=== PATIENT | female | born 1965 | race Caucasian/White ===

== ENCOUNTER 2016-11-09 06:14 | Emergency (ER) | payer SELFPAY ==
[2016-11-09 06:21] VITALS: BP 120/94
[2016-11-09] MEDS ORDERED: PENICILLIN V POTASSIUM 500 MG TABLET PO ONE (06:44)
[2016-11-09] MEDS ORDERED: IBUPROFEN 600 MG TABLET PO ONE (06:44)
[2016-11-09] MEDS ORDERED: BENZONATATE 100 MG CAPSULE PO ONE (06:44)
--- NOTE | 2016-11-09 06:54 | ER Document Report ---
ED Oral Problem - General Chief Complaint: Dental Injury Stated Complaint: TOOTHACHE Time Seen by Provider: 11/09/16 06:32 Mode of Arrival: Ambulatory Information source: Patient Notes: 41-year-old female presents to ED for dental pain to the left upper tooth #5 and 6. Most of the teeth are gone from her upper jaw. These teeth are very decayed broken off 1 of them right at the gum line the other one pretty close to that. Patient states she was on pain management but had to quit due to no insurance. She states she got her last pain medicine last week. When I reviewed her medical record, showed she she received 10 fentanyl patches last week. She was not using the fentanyl patches because they were not helping. She states she does not live in the morning as they are ordered. TRAVEL OUTSIDE OF THE [place] IN LAST 30 DAYS: No - HPI Patient complains to provider of: Jaw pain, Toothache Onset: Other - Pain to the tooth but it became much worse on and then even worse today Onset: Gradual Quality of pain: Sharp, Throbbing Severity: Severe Pain Level: 5 Associated symptoms: Toothache Worsened by: Cold Relieved by: Nothing Similar symptoms previously: Yes Recently seen / treated by doctor/dentist: No - Related Data Allergies/Adverse Reactions: No Known Allergies Allergy (Verified 12/21/13 14:41) Past Medical History - General Information source: Patient - Social History Smoking Status: Current Every Day Smoker Cigarette use (# per day): Yes - Half a pack a day Chew tobacco use (# tins/day): No Smoking Education Provided: Yes - Less than 2 minutes Frequency of alcohol use: Occasional Drug Abuse: None 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 denies: DM, Thyroid Disfunction Patient has suicidal ideation: No Patient has homicidal ideation: No - Past Medical History Cardiac Medical History: Reports: None Pulmonary Medical History: Reports: None EENT Medical History: Reports: None Neurological Medical History: Reports: None Endocrine Medical History: Reports: None Renal/ Medical History: Reports: None Malignancy Medical History: Reports: None GI Medical History: Reports: None Musculoskeltal Medical History: Reports Hx Arthritis, Reports Hx Musculoskeletal Deformity, Reports Hx Musculoskeletal Trauma Skin Medical History: Reports None Psychiatric Medical History: Reports: None Traumatic Medical History: Reports: None Infectious Medical History: Reports: None Past Surgical History: Reports: Hx Oral Surgery - Dental surgery, Hx Tubal Ligation - Immunizations Hx Diphtheria, Pertussis, Tetanus Vaccination: Yes - 2005 Review of Systems - Review of Systems Constitutional: No symptoms reported EENT: Mouth pain, Dental problem Cardiovascular: No symptoms reported Respiratory: No symptoms reported Gastrointestinal: No symptoms reported Genitourinary: No symptoms reported Female Genitourinary: No symptoms reported Musculoskeletal: No symptoms reported Skin: No symptoms reported Hematologic/Lymphatic: No symptoms reported Neurological/Psychological: No symptoms reported -: Yes All other systems reviewed and negative Physical Exam - Vital signs Vitals: Temp Pulse Resp BP Pulse Ox 98.5 F 85 16 120/94 H 97 11/09/16 06:20 11/09/16 06:20 11/09/16 06:20 11/09/16 06:20 11/09/16 06:20 Interpretation: Normal - General General appearance: Appears well, Alert - HEENT Head: Normocephalic, Atraumatic Eyes: Normal Pupils: PERRL Ears: Normal External canal: Normal Tympanic membrane: Normal Sinus: Normal Nasal: Normal Mouth/Lips: Caries Mucous membranes: Normal Teeth diagram: 1 - Dental cavities, tooth broken off almost to the gumline. Irritation to the gums. Patient only has about 3 teeth in the top jaw. The rest her false teeth. Pharynx: Normal Neck: Normal - Respiratory Respiratory status: No respiratory distress Chest status: Nontender Breath sounds: Normal Chest palpation: Normal - Cardiovascular Rhythm: Regular Heart sounds: Normal auscultation Murmur: No - Abdominal Inspection: Normal Distension: No distension Bowel sounds: Normal Tenderness: Nontender Organomegaly: No organomegaly - Back Back: Normal, Nontender - Extremities General upper extremity: Normal inspection, Nontender, Normal color, Normal ROM , Normal temperature General lower extremity: Normal inspection, Nontender, Normal color, Normal ROM , Normal temperature, Normal weight bearing. No: Hernandez's sign - Neurological Neuro grossly intact: Yes Cognition: Normal Orientation: AAOx4 Deshawn Coma Scale Eye Opening: Spontaneous Deshawn Coma Scale Verbal: Oriented Rosalia Coma Scale Motor: Obeys Commands Rosalia Coma Scale Total: 15 Speech: Normal Motor strength normal: LUE, RUE, LLE, RLE Sensory: Normal - Psychological Associated symptoms: Normal affect, Normal mood - Skin Skin Temperature: Warm Skin Moisture: Dry Skin Color: Normal Course - Re-evaluation Re-evalutation: 11/09/16 07:29 Patient was treated with Penicillin VK ibuprofen and a Kaushal used on the tooth she said she did not get relief with the Tessalon. Patient instructed to use her fentanyl patches as ordered not to put him on intake might back off. Patient to follow-up with the dentist. - Vital Signs Vital signs: Temp Pulse Resp BP Pulse Ox 98.5 F 85 16 120/94 H 97 11/09/16 06:20 11/09/16 06:20 11/09/16 06:20 11/09/16 06:20 11/09/16 06:20 Discharge - Discharge Clinical Impression: Pain due to dental caries Condition: Stable Disposition: HOME, SELF-CARE Additional Instructions: TOOTHACHE: Your pain is due to dental decay. The tooth must be repaired in order for you to feel better. You will, therefore, be referred to a dentist. We do not have dentists on the staff at [facility]. Severe swelling or drainage around a tooth usually means a dental abscess. This also requires evaluation and treatment by the dentist, but antibiotics may be prescribed while awaiting dental treatment. You should be rechecked immediately if you develop major swelling of the face, increasing pain, a lump in the jaw or gums, headache, difficulty swallowing, or fever. PENICILLIN V K: You have been given a prescription for Penicillin VK. Your physician has determined that this is the best antibiotic for your condition. Pen VK can be taken with meals, however more of the antibiotic gets into the bloodstream if it's taken on an empty stomach. Penicillin usually has no side effects. However, allergy to penicillins is common. If you have had an allergic reaction to any drug of the penicillin family, you should never take any other penicillin. Notify your doctor at once if you develop hives, itching, swelling, faintness, or shortness of breath. Ibuprofen Ibuprofen is an excellent, safe drug for pain control. In addition, it has potent antiinflammatory effects which are beneficial, especially in the treatment of injuries, arthritis, or tendonitis. It's best to take ibuprofen with food. Persons with ulcer disease or allergy to aspirin should notify their physician of this before taking ibuprofen. Take the medication exactly as prescribed. Don't take additional doses unless instructed to do so by your doctor. If you develop wheezing, shortness of breath, hives, faintness, stomach pain, vomiting, or dark black stools, return for re-evaluation at once. Use your fentanyl patches that you have as prescribed. Put the patch on and leave it on for 3 days and then change the patch taken the first 1 also put in a new one on. They do not work as soon as you put them on you have to leave the morning as ordered. You need to follow-up with a dentist as soon as possible to remove these teeth. FOLLOW-UP CARE: You have been referred for follow-up care to the dentists listed below. Call the dentists office for an appointment as you were instructed or within the next two days. If you experience worsening or a significant change in your symptoms, notify the physician immediately or return to the Emergency Department at any time for re-evaluation. [facility] [address] [place] [address] [facility] [place] [address] [facility] [address] [facility] ([facility]) [facility] [address] [email or web address] [facility] [address] [place] [address] Thursday- 8:00am to 5:00 pm Will see patients from other [facility]. Charges based on income and family size and accepts Medicare, Medicaid, and Insurances Will pull molars [facility] [address] Hours of Operation 8:00 am - 4:30 pm weekdays The following dental offices accept Medicaid: [facility] [address] [place]. Delgado [facility], [place], and [facility] Dr. Lewis ([place]) Dr. Llamas ([place]) [facility] Drs. Ruiz ([place]) Dr. Arenas ([place]) [facility] Dr. Michelle ([place]) Drs. Koehler and ([place]) Medicaid Care Line Prescriptions: Penicillin V Potassium [Penicillin Vk 500 mg Tablet] 500 mg PO BID #20 tablet Forms: Elevated Blood Pressure, Smoking Cessation Education Referrals: [facility] [Provider Group] - Follow up as needed
== END 2016-11-09 07:18 | disposition home or self-care (01) ==
LOC: ER 06:14
DX: K02.9 Dental caries, unspecified (principal); K08.89 Other specified disorders of teeth and supporting structures; F17.210 Nicotine dependence, cigarettes, uncomplicated; Z71.6 Tobacco abuse counseling; Z98.890 Other specified postprocedural states
CPT/HCPCS: 99282

== ENCOUNTER 2018-03-03 12:57 | Inpatient (IN) | payer SELFPAY ==
[2018-03-03] MEDS ORDERED: KETOROLAC TROMETHAMINE 60 MG/2 ML SDV IM ONE (13:48)
--- NOTE | 2018-03-03 13:49 | ER Document Report ---
ED Medical Screen (RME) - General Chief Complaint: Headache >24 hrs old Stated Complaint: HEADACHE Time Seen by Provider: 03/03/18 13:43 Notes: 52 years old female who was acting very bizarre, complain chest pain at the triage, complaint of left lower quadrant abdominal pain to me. Would not stay still. Having pain all over the body. Denies any fever chills earache sore throat neck pain shortness of breath. Denies any nausea vomiting. Been having dysuria and frequency. TRAVEL OUTSIDE OF THE [place] IN LAST 30 DAYS: No - Related Data Allergies/Adverse Reactions: No Known Allergies Allergy (Verified 03/03/18 12:58) Past Medical History - Social History Family history: Reviewed & Not Pertinent - Past Medical History Cardiac Medical History: Denies: Hx Coronary Artery Disease, Hx Heart Attack, Hx Hypertension Pulmonary Medical History: Denies: Hx Asthma, Hx Bronchitis, Hx COPD, Hx Pneumonia Neurological Medical History: Denies: Hx Cerebrovascular Accident, Hx Seizures Renal/ Medical History: Denies: Hx Peritoneal Dialysis Musculoskeltal Medical History: Reports Hx Arthritis, Reports Hx Musculoskeletal Deformity, Reports Hx Musculoskeletal Trauma Past Surgical History: Reports: Hx Oral Surgery - Dental surgery, Hx Tubal Ligation. Denies: Hx Hysterectomy, Hx Pacemaker - Immunizations Hx Diphtheria, Pertussis, Tetanus Vaccination: Yes - 2005 Physical Exam - Vital signs Vitals: Temp Pulse BP Pulse Ox 99.3 F 126 H 120/71 100 03/03/18 13:20 03/03/18 13:20 03/03/18 13:20 03/03/18 13:20 Course - Vital Signs Vital signs: Temp Pulse Resp BP Pulse Ox 99.3 F 126 H 22 H 120/71 100 03/03/18 13:20 03/03/18 13:20 03/03/18 13:25 03/03/18 13:20 03/03/18 13:20
[2018-03-03 14:16] LABS: HEMATOCRIT 37.8 % (36.0-47.0); HEMOGLOBIN 13.3 g/dL (12.0-15.5); MEAN CORPUSCULAR HEMOGLOBIN 29.7 pg (27.0-33.4); MEAN CORPUSCULAR HGB CONC 35.1 g/dL (32.0-36.0); MEAN CORPUSCULAR VOLUME 85 fl (80-97); PLATELET COUNT 311 10^3/uL (150-450); RED BLOOD COUNT 4.46 10^6/uL (3.72-5.28); RED CELL DISTRIBUTION WIDTH 12.2 % (11.5-14.0); WHITE BLOOD COUNT 25.4 10^3/uL (4.0-10.5)
[2018-03-03 14:26] LABS: APPEARANCE,URINE CLOUDY; BILIRUBIN,URINE NEGATIVE (NEGATIVE); COLOR,URINE AMBER; GLUCOSE, URINE NEGATIVE (NEGATIVE); KETONES,URINE NEGATIVE (NEGATIVE); LEUKOCYTE ESTERASE,URINE LARGE (NEGATIVE); NITRITE,URINE POSITIVE (NEGATIVE); PROTEIN,URINE >=500 mg/dL (NEGATIVE); URINE SPECIFIC GRAVITY 1.017
[2018-03-03 14:30] LABS: ALANINE AMINOTRANSFERASE 16 U/L (9-52); ALBUMIN 3.5 g/dL (3.5-5.0); ALKALINE PHOSPHATASE 132 U/L (38-126); ANION GAP 17 (5-19); ASPARTATE AMINO TRANSFERASE 18 U/L (14-36); BILIRUBIN,DIRECT 0.4 mg/dL (0.0-0.4); BILIRUBIN,TOTAL 1.3 mg/dL (0.2-1.3); BLOOD UREA NITROGEN 12 mg/dL (7-20); CALCIUM 8.6 mg/dL (8.4-10.2); CARBON DIOXIDE 27 mmol/L (22-30); CHLORIDE 93 mmol/L (98-107); GLUCOSE 107 mg/dL (75-110); SODIUM 137.3 mmol/L (137-145); TOTAL PROTEIN 6.8 g/dL (6.3-8.2)
[2018-03-03 14:32] LABS: POTASSIUM 2.8 mmol/L (3.6-5.0)
[2018-03-03 14:40] LABS: ABSOLUTE LYMPHOCYTES# (MANUAL) 1.5 10^3/uL (0.5-4.7); ABSOLUTE MONOCYTES # (MANUAL) 1.5 10^3/uL (0.1-1.4); ABSOLUTE NEUTROPHILS# (MANUAL) 22.4 10^3/uL (1.7-8.2); BASOPHILS % (MANUAL) 0 % (0-2); EOSINOPHILS % (MANUAL) 0 % (0-6); LYMPHOCYTES % (MANUAL) 3 % (13-45); MONOCYTES % (MANUAL) 6 % (3-13); SEGMENTED NEUTROPHILS % (MAN) 88 % (42-78); TOTAL CELLS COUNTED 100; TOXIC GRANULATION SLIGHT; URINE AMPHETAMINES SCREEN NEGATIVE; URINE BARBITURATES SCREEN NEGATIVE; URINE BENZODIAZEPINES SCREEN UNCONFIRMED POSITIVE; URINE COCAINE SCREEN NEGATIVE; URINE MARIJUANA (THC) SCREEN NEGATIVE; URINE METHADONE SCREEN NEGATIVE; URINE PHENCYCLIDINE SCREEN NEGATIVE
[2018-03-03] MEDS ORDERED: POTASSI CL 20 MEQ/50 ML RIDER 20 MEQ/50 ML RTUPB IV ONE (14:40)
[2018-03-03 14:41] LABS: HYPOCHROMASIA SLIGHT; PLATELET COMMENT ADEQUATE
[2018-03-03] MEDS ORDERED: CEFTRIAXONE 1 GM/D5W RTU 1 GM/50 ML RTUPB IV ONE (15:06)
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
[2018-03-03] MEDS ORDERED: DIPHENHYDRAMINE HCL 50 MG/ML VIAL IV ONE (15:14)
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
--- NOTE | 2018-03-03 15:49 | RADIOLOGY REPORT (SQ) ---
EXAM DESCRIPTION: CHEST 2 VIEWS COMPLETED DATE/TIME: 03/03/2018 3:31 pm REASON FOR STUDY: chest pain COMPARISON: None. EXAM PARAMETERS: NUMBER OF VIEWS: two views TECHNIQUE: Digital Frontal and Lateral radiographic views of the chest acquired. RADIATION DOSE: NA LIMITATIONS: none FINDINGS: LUNGS AND PLEURA: No opacities, masses or pneumothorax. No pleural effusion. MEDIASTINUM AND HILAR STRUCTURES: No masses or contour abnormalities. HEART AND VASCULAR STRUCTURES: Heart normal size. No evidence for failure. BONES: No acute findings. HARDWARE: None in the chest. OTHER: No other significant finding. IMPRESSION: NO ACUTE RADIOGRAPHIC FINDING IN THE CHEST. TECHNICAL DOCUMENTATION: JOB ID: [id number] [email or web address]- All Rights Reserved Reading location - IP/workstation name: [email or web address]
[2018-03-03] MEDS: RINGERS SOLUTION,LACTATED 1,000 ML IV PRN ×2 (15:53→16:30)
[2018-03-03 16:04] LABS: VENOUS BLOOD BASE EXCESS 2.3 mmol/L; VENOUS BLOOD HCO3 27.2 mmol/L (20-32); VENOUS BLOOD PCO2 43.2 mmHg (35-63); VENOUS BLOOD PH 7.42 (7.30-7.42)
[2018-03-03 16:15] LABS: INTERNATIONAL RATION (INR) 1.02; PROTHROMBIN TIME 13.9 SEC (11.4-15.4)
[2018-03-03 16:18] LABS: D-DIMER 2.68 ug/mL (0.00-0.50)
[2018-03-03] MEDS ORDERED: IPRATROPIUM/ALBUTEROL 0.5-2.5 MG/3 ML AMPUL NEB PRN (17:08)
[2018-03-03] MEDS ORDERED: POTASSIUM CHLORIDE 20 MEQ/15 ML UDCUP PO ONE (17:17)
--- NOTE | 2018-03-03 17:39 | RADIOLOGY REPORT (SQ) ---
EXAM DESCRIPTION: CTA CHEST COMPLETED DATE/TIME: 03/03/2018 5:30 pm REASON FOR STUDY: sob elevated dimer COMPARISON: Chest radiograph TECHNIQUE: CT scan of the chest performed using helical scanning technique with dynamic intravenous contrast injection. Images reviewed with lung, soft tissue and bone windows. Reconstructed coronal and sagittal MPR images reviewed. Additional 3 dimensional post-processing performed to develop Maximal Intensity Projection images (MS P). All images stored on PACS. All CT scanners at this facility use dose modulation, iterative reconstruction, and/or weight based d osing when appropriate to reduce radiation dose to as low as reasonably achievable (ALARA). [facility]: Dose Right [facility]: CareDose [facility]: Dose Right [facility]: Teradose 4D [facility]: [employer] CONTRAST TYPE AND DOSE: contrast/concentration: Isovue 350.00 mg/ml; Total Contrast Delivered: 49.0 ml; Total Saline Delivered: 94.0 ml Contrast bolus optimized for the pulmonary arteries. Not diagnostic for the aorta. RENAL FUNCTION: Creatinine 0.96 RADIATION DOSE: CT Rad equipment meets quality standard of care and radiation dose reduction techniq ues were employed. CTDIvol: 4.4 - 13.2 mGy. DLP: 173 mGy-cm. . LIMITATIONS: None. FINDINGS: LUNGS AND PLEURA: No masses, infiltrates, or pneumothorax. No pleural effusions or pleura l calcifications. AORTA AND GREAT VESSELS: No aneurysm. Contrast bolus not optimized for the aorta. HEART: No pericardial effusion. No significant coronary artery calcifications. PULMONARY ARTERIES: No emboli visualized in the main pulmonary arteries or the segmental branches. HILAR AND MEDIASTINAL STRUCTURES: No identified masses or abnormal nodes. HARDWARE: None in the chest. UPPER ABDOMEN: No significant findings. Limited exam. THYROID AND OTHER SOFT TISSUES: No masses. No adenopathy. BONES: No acute or significant finding. 3D MIPS: Confirm above findings. OTHER: No other significant finding. IMPRESSION: NORMAL CTA OF THE CHEST. NO PULMONARY EMBOLI. COMMENT: Quality ID # [id number]: Final reports with documentation of one or more dose reduction techniques (e.g., Automated exposure control, adjustment of the mA and/or kV according to patient size, use of iterative reconstruction technique) TECHNICAL DOCUMENTATION: JOB ID: [id number] [email or web address]- All Rights Reserved Reading location - IP/workstation name: [email or web address]
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
[2018-03-03] MEDS ORDERED: ENOXAPARIN SODIUM INJ 40 MG/0.4 ML DISP.SYRIN SUBCUT ONE (19:00)
[2018-03-03] MEDS: MAGNESIUM SULFATE/D5W 1 GM/100 ML RTUPB IV SCH ×2 (19:15→21:16)
--- NOTE | 2018-03-03 19:20 | EKG REPORT ---
SEVERITY:- OTHERWISE NORMAL ECG - SINUS TACHYCARDIA : Confirmed by: Nancy Liu MD 03-Mar-2018 19:19:26
[2018-03-03] MEDS: DEXTROSE 5%-NORMAL SALINE 1,000 ML IV PRN (19:25)
[2018-03-03 20:35] LABS: ANION GAP 10 (5-19); BLOOD UREA NITROGEN 13 mg/dL (7-20); CALCIUM 7.9 mg/dL (8.4-10.2); CARBON DIOXIDE 28 mmol/L (22-30); CHLORIDE 98 mmol/L (98-107); GLUCOSE 114 mg/dL (75-110); POTASSIUM 3.7 mmol/L (3.6-5.0); SODIUM 136.4 mmol/L (137-145)
[2018-03-03] MEDS ORDERED: GUAIFENESIN 600 MG TABLET.SA PO SCH (22:00)
[2018-03-04] MEDS ORDERED: ACETAMINOPHEN 325 MG TABLET ONE (00:34)
[2018-03-04] MEDS: ACETAMINOPHEN 325 MG TABLET PO PRN ×3 (00:52→14:31)
[2018-03-04 05:43] LABS: URINE POTASSIUM 46.2 mmol/L (22-164)
[2018-03-04] MEDS ORDERED: LANSOPRAZOLE 15 MG TAB.RAP.DR PO SCH (06:00)
[2018-03-04 06:03] LABS: HEMOGLOBIN 11.4 g/dL (12.0-15.5); MEAN CORPUSCULAR HEMOGLOBIN 29.5 pg (27.0-33.4); MEAN CORPUSCULAR HGB CONC 34.6 g/dL (32.0-36.0); MEAN CORPUSCULAR VOLUME 85 fl (80-97); PLATELET COUNT 228 10^3/uL (150-450); RED BLOOD COUNT 3.86 10^6/uL (3.72-5.28); RED CELL DISTRIBUTION WIDTH 12.7 % (11.5-14.0)
[2018-03-04 06:18] LABS: WHITE BLOOD COUNT 22.9 10^3/uL (4.0-10.5)
[2018-03-04 06:26] LABS: ALANINE AMINOTRANSFERASE 15 U/L (9-52); ALBUMIN 2.4 g/dL (3.5-5.0); ALKALINE PHOSPHATASE 127 U/L (38-126); ANION GAP 11 (5-19); ASPARTATE AMINO TRANSFERASE 17 U/L (14-36); BILIRUBIN,DIRECT 0.3 mg/dL (0.0-0.4); BILIRUBIN,TOTAL 0.7 mg/dL (0.2-1.3); BLOOD UREA NITROGEN 11 mg/dL (7-20); CALCIUM 7.8 mg/dL (8.4-10.2); CARBON DIOXIDE 25 mmol/L (22-30); CHLORIDE 104 mmol/L (98-107); GLUCOSE 108 mg/dL (75-110); POTASSIUM 3.2 mmol/L (3.6-5.0); SODIUM 140.2 mmol/L (137-145)
[2018-03-04 06:34] LABS: ABSOLUTE LYMPHOCYTES# (MANUAL) 0.9 10^3/uL (0.5-4.7); ABSOLUTE MONOCYTES # (MANUAL) 0.9 10^3/uL (0.1-1.4); ABSOLUTE NEUTROPHILS# (MANUAL) 21.1 10^3/uL (1.7-8.2); BAND NEUTROPHILS % (MANUAL) 7 % (3-5); BASOPHILS % (MANUAL) 0 % (0-2); EOSINOPHILS % (MANUAL) 0 % (0-6); LYMPHOCYTES % (MANUAL) 4 % (13-45); MONOCYTES % (MANUAL) 4 % (3-13); SEGMENTED NEUTROPHILS % (MAN) 85 % (42-78); TOTAL CELLS COUNTED 100
[2018-03-04 06:35] LABS: TOXIC GRANULATION SLIGHT; TOXIC VACUOLATION PRESENT
[2018-03-04 06:37] LABS: RBC MORPHOLOGY COMMENT NORMO-CYTIC/CHROMIC
[2018-03-04 06:38] LABS: PLATELET COMMENT ADEQUATE
[2018-03-04] MEDS: GUAIFENESIN 600 MG TABLET.SA PO SCH ×2 (09:10→21:51)
[2018-03-04] MEDS: ENOXAPARIN SODIUM INJ 40 MG/0.4 ML DISP.SYRIN SUBCUT SCH (09:11)
[2018-03-04] MEDS ORDERED: POTASSIUM CHLORIDE 20 MEQ/15 ML UDCUP PO SCH (10:00)
[2018-03-04] MEDS ORDERED: LEVOFLOXACIN 750 MG/D5W RTU 750 MG/150 ML RTUPB IV SCH (10:00)
[2018-03-04] MEDS: BUTALB/ACETAMINOPHEN/CAFFEINE 1 TAB EACH PO PRN (10:25)
[2018-03-04] MEDS: DEXTROSE 5%-NORMAL SALINE 1,000 ML IV PRN (10:58)
[2018-03-04] MEDS: PIPERACILLIN SODIUM/TAZOBACTAM 4.5 GM in NORMAL SALINE 100 ML IV SCH ×2 (10:59→17:44)
--- NOTE | 2018-03-04 13:28 | RADIOLOGY REPORT (SQ) ---
EXAM DESCRIPTION: U/S RETROPERITON (RENAL/AORTA) COMPLETED DATE/TIME: 03/04/2018 12:11 pm REASON FOR STUDY: rule out pyelo COMPARISON: None. TECHNIQUE: Dynamic and static grayscale images acquired of the kidneys and bladder and recorded on P ACS. Additional selected color Doppler and spectral images recorded. LIMITATIONS: None. FINDINGS: RIGHT KIDNEY: Normal size, 12 cm. Normal echogenicity. No solid or suspicious masses. No h ydronephrosis. No calcifications. LEFT KIDNEY: Normal size, 12.9 cm. Normal echogenicity. No solid or suspicious masses. No hydronephr osis. No calcifications. BLADDER: Not seen. OTHER FINDINGS: No other significant finding. IMPRESSION: Normal renal ultrasound. TECHNICAL DOCUMENTATION: JOB ID: [id number] [employer]- All Rights Reserved Reading location - IP/workstation name: [email or web address]
[2018-03-04] MEDS: NORMAL SALINE 1000 ML 1,000 ML IV PRN (14:35)
[2018-03-04] MEDS ORDERED: MORPHINE SULFATE 10 MG/ML INJ IV PRN (15:45)
[2018-03-04] MEDS ORDERED: CEFAZOLIN 2 GM/D5W RTU 2 GM/50 ML RTUPB IV PRN (16:00)
[2018-03-04] MEDS ORDERED: VANCOMYCIN HCL 0 MG in DEXTROSE 5%-WATER 250 ML IV NR (16:00)
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
[2018-03-04] MEDS ORDERED: IBUPROFEN 800 MG TABLET PO ONE (16:30)
[2018-03-04] MEDS: LANSOPRAZOLE 15 MG TAB.RAP.DR PO SCH (16:34)
[2018-03-04] MEDS: FOLIC ACID 1 MG TABLET PO SCH (17:44)
[2018-03-04] MEDS: THIAMINE HCL 100 MG TABLET PO SCH (17:44)
[2018-03-04] MEDS: LORAZEPAM INJ 2 MG/1 ML VIAL IV PRN ×2 (17:44→21:50)
[2018-03-04] MEDS: VANCOMYCIN HCL 750 MG in DEXTROSE 5%-WATER 250 ML IV SCH (21:51)
[2018-03-05] MEDS: PIPERACILLIN SODIUM/TAZOBACTAM 4.5 GM in NORMAL SALINE 100 ML IV SCH ×5 (00:12→23:36)
[2018-03-05] MEDS: ACETAMINOPHEN 325 MG TABLET PO PRN ×2 (04:38→15:15)
[2018-03-05] MEDS: LORAZEPAM INJ 2 MG/1 ML VIAL IV PRN ×4 (04:39→21:47)
[2018-03-05] MEDS: NORMAL SALINE 1000 ML 1,000 ML IV PRN ×2 (04:39→15:10)
[2018-03-05 04:57] LABS: HEMATOCRIT 29.6 % (36.0-47.0); HEMOGLOBIN 10.2 g/dL (12.0-15.5); MEAN CORPUSCULAR HEMOGLOBIN 29.4 pg (27.0-33.4); MEAN CORPUSCULAR HGB CONC 34.4 g/dL (32.0-36.0); MEAN CORPUSCULAR VOLUME 86 fl (80-97); PLATELET COUNT 234 10^3/uL (150-450); RED BLOOD COUNT 3.46 10^6/uL (3.72-5.28); WHITE BLOOD COUNT 13.9 10^3/uL (4.0-10.5)
[2018-03-05] MEDS: LANSOPRAZOLE 15 MG TAB.RAP.DR PO SCH ×2 (05:05→17:50)
[2018-03-05 05:20] LABS: ALANINE AMINOTRANSFERASE 13 U/L (9-52); ALBUMIN 2.2 g/dL (3.5-5.0); ALKALINE PHOSPHATASE 125 U/L (38-126); ANION GAP 13 (5-19); ASPARTATE AMINO TRANSFERASE 16 U/L (14-36); BILIRUBIN,DIRECT 0.2 mg/dL (0.0-0.4); BILIRUBIN,TOTAL 0.5 mg/dL (0.2-1.3); BLOOD UREA NITROGEN 11 mg/dL (7-20); CALCIUM 7.8 mg/dL (8.4-10.2); CARBON DIOXIDE 23 mmol/L (22-30); CHLORIDE 105 mmol/L (98-107); GLUCOSE 94 mg/dL (75-110); POTASSIUM 3.2 mmol/L (3.6-5.0); SODIUM 140.5 mmol/L (137-145); TOTAL PROTEIN 4.7 g/dL (6.3-8.2)
[2018-03-05 05:22] LABS: ABSOLUTE MONOCYTES # (MANUAL) 0.6 10^3/uL (0.1-1.4); ABSOLUTE NEUTROPHILS# (MANUAL) 12.2 10^3/uL (1.7-8.2); BASOPHILS % (MANUAL) 0 % (0-2); EOSINOPHILS % (MANUAL) 1 % (0-6); LYMPHOCYTES % (MANUAL) 6 % (13-45); MONOCYTES % (MANUAL) 4 % (3-13); PLATELET COMMENT ADEQUATE; RBC MORPHOLOGY COMMENT NORMO-CYTIC/CHROMIC; SEGMENTED NEUTROPHILS % (MAN) 88 % (42-78); TOTAL CELLS COUNTED 100
[2018-03-05] MEDS: POTASSIUM CHLORIDE 20 MEQ/15 ML UDCUP PO SCH ×2 (09:25→17:50)
[2018-03-05] MEDS: ENOXAPARIN SODIUM INJ 40 MG/0.4 ML DISP.SYRIN SUBCUT SCH (09:26)
[2018-03-05] MEDS: FOLIC ACID 1 MG TABLET PO SCH (09:26)
[2018-03-05] MEDS: GUAIFENESIN 600 MG TABLET.SA PO SCH ×2 (09:26→21:47)
[2018-03-05] MEDS: THIAMINE HCL 100 MG TABLET PO SCH (09:26)
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
--- NOTE | 2018-03-05 15:22 | RADIOLOGY REPORT (SQ) ---
EXAM DESCRIPTION: CT THORACIC SPINE WITHOUT COMPLETED DATE/TIME: 03/05/2018 1:34 pm REASON FOR STUDY: Persistent fever and paraspinal tenderness COMPARISON: None. TECHNIQUE: Axial images acquired through the thoracic spine without intravenous contrast. Images re viewed with lung, soft tissue and bone windows. Reconstructed coronal and sagittal MPR images review ed. Images stored on PACS. All CT scanners at this facility use dose modulation, iterative reconstruction, and/or weight based d osing when appropriate to reduce radiation dose to as low as reasonably achievable (ALARA). [facility]: Dose Right [facility]: CareDose [facility]: Dose Right [facility]: Teradose 4D [facility]: [employer] RADIATION DOSE: CT Rad equipment meets quality standard of care and radiation dose reduction techniq ues were employed. CTDIvol: 4.7 mGy. DLP: 171 mGy-cm. mGy. LIMITATIONS: None. FINDINGS: VISUALIZED LUNGS: No acute opacities. No pneumothorax. SOFT TISSUES: No soft tissue swelling. No masses. VERTEBRAL BODIES: No fractures. No dislocation. No acute findings. DISCS: No significant disc space narrowing. ALIGNMENT: Normal. TRANSVERSE PROCESSES, POSTERIOR ELEMENTS: No fractures. No dislocation. No acute findings. HARDWARE: None in the spine. VISUALIZED RIBS: No fractures. OTHER: No other significant finding. IMPRESSION: No acute findings. TECHNICAL DOCUMENTATION: JOB ID: [id number] Quality ID # [id number]: Final reports with documentation of one or more dose reduction techniques (e.g., Au tomated exposure control, adjustment of the mA and/or kV according to patient size, use of iterative reconstruction technique) 2010 [employer] All Rights Reserved Reading location - IP/workstation name: [email or web address]
--- NOTE | 2018-03-05 15:32 | RADIOLOGY REPORT (SQ) ---
EXAM DESCRIPTION: CT LUMBAR SPINE WITHOUT COMPLETED DATE/TIME: 03/05/2018 1:34 pm REASON FOR STUDY: Persistent fever and paraspinal tenderness COMPARISON: None. TECHNIQUE: Axial images acquired through the lumbar spine without intravenous contrast. Images revi ewed with lung, soft tissue and bone windows. Reconstructed coronal and sagittal MPR images reviewed . All images stored on PACS. All CT scanners at this facility use dose modulation, iterative reconstruction, and/or weight based d osing when appropriate to reduce radiation dose to as low as reasonably achievable (ALARA). [facility]: Dose Right [facility]: CareDose [facility]: Dose Right [facility]: Teradose 4D [facility]: [employer] RADIATION DOSE: CT Rad equipment meets quality standard of care and radiation dose reduction techniq ues were employed. CTDIvol: 4.6 mGy. DLP: 125 mGy-cm. mGy. LIMITATIONS: None. FINDINGS: Alignment is anatomic. Mild facet arthropathy lower lumbar spine. Disc heights are maint ained. Anterior spur formation L3-4. No spinal stenosis. SI joints are normal. No paraspinal mass . IMPRESSION: No acute findings. TECHNICAL DOCUMENTATION: JOB ID: [id number] Quality ID # [id number]: Final reports with documentation of one or more dose reduction techniques (e.g., Au tomated exposure control, adjustment of the mA and/or kV according to patient size, use of iterative reconstruction technique) 2010 [employer]- All Rights Reserved Reading location - IP/workstation name: [email or web address]
[2018-03-05] MEDS ORDERED: IBUPROFEN 600 MG TABLET PO ONE (17:30)
[2018-03-05] MEDS: VANCOMYCIN HCL 750 MG in DEXTROSE 5%-WATER 250 ML IV SCH (21:47)
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
[2018-03-06] MEDS: BUTALB/ACETAMINOPHEN/CAFFEINE 1 TAB EACH PO PRN (02:27)
[2018-03-06] MEDS: LORAZEPAM INJ 2 MG/1 ML VIAL IV PRN (03:12)
[2018-03-06] MEDS: ACETAMINOPHEN 325 MG TABLET PO PRN (03:13)
[2018-03-06] MEDS: NORMAL SALINE 1000 ML 1,000 ML IV PRN (05:46)
[2018-03-06] MEDS: PIPERACILLIN SODIUM/TAZOBACTAM 4.5 GM in NORMAL SALINE 100 ML IV SCH (05:46)
[2018-03-06] MEDS: LANSOPRAZOLE 15 MG TAB.RAP.DR PO SCH ×2 (05:47→17:15)
[2018-03-06] MEDS: CEFAZOLIN 1 GM/D5W RTU 1 GM/50 ML RTUPB IV SCH ×3 (09:29→21:11)
[2018-03-06] MEDS: FOLIC ACID 1 MG TABLET PO SCH (09:29)
[2018-03-06] MEDS: THIAMINE HCL 100 MG TABLET PO SCH (09:30)
[2018-03-06] MEDS: GUAIFENESIN 600 MG TABLET.SA PO SCH ×2 (09:30→21:10)
[2018-03-06] MEDS: ENOXAPARIN SODIUM INJ 40 MG/0.4 ML DISP.SYRIN SUBCUT SCH (09:30)
[2018-03-06] MEDS: POTASSIUM CHLORIDE 20 MEQ/15 ML UDCUP PO SCH ×2 (12:29→17:13)
[2018-03-06] MEDS: POTASSI CL 20 MEQ/D5-1/2NS 1L 1,000 ML IV PRN (12:30)
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
[2018-03-06] MEDS: KETOROLAC TROMETHAMINE INJ/PF 30 MG/1 ML SDV IV SCH ×2 (17:13→23:29)
[2018-03-07] MEDS: POTASSI CL 20 MEQ/D5-1/2NS 1L 1,000 ML IV PRN ×2 (00:53→16:24)
[2018-03-07] MEDS: CEFAZOLIN 1 GM/D5W RTU 1 GM/50 ML RTUPB IV SCH ×4 (04:49→21:18)
[2018-03-07] MEDS: LANSOPRAZOLE 15 MG TAB.RAP.DR PO SCH ×2 (05:00→16:25)
[2018-03-07] MEDS: KETOROLAC TROMETHAMINE INJ/PF 30 MG/1 ML SDV IV SCH ×4 (05:16→23:16)
[2018-03-07] MEDS: POTASSIUM CHLORIDE 20 MEQ/15 ML UDCUP PO SCH ×3 (08:57→16:24)
[2018-03-07 09:22] LABS: ABSOLUTE BASOPHILS # (AUTO) 0.1 10^3/uL (0.0-0.2); ABSOLUTE EOSINOPHILS # (AUTO) 0.1 10^3/uL (0.0-0.6); ABSOLUTE LYMPHOCYTES (AUTO) 0.9 10^3/uL (0.5-4.7); ABSOLUTE MONOCYTES (AUTO) 0.7 10^3/uL (0.1-1.4); BASOPHILS % (AUTO) 1.3 % (0-2); EOSINOPHILS % (AUTO) 0.9 % (0-6); HEMATOCRIT 30.6 % (36.0-47.0); HEMOGLOBIN 10.8 g/dL (12.0-15.5); LYMPHOCYTES % (AUTO) 11.4 % (13-45); MEAN CORPUSCULAR HEMOGLOBIN 30.3 pg (27.0-33.4); MEAN CORPUSCULAR HGB CONC 35.2 g/dL (32.0-36.0); MEAN CORPUSCULAR VOLUME 86 fl (80-97); MONOCYTES % (AUTO) 9.2 % (3-13); PLATELET COUNT 412 10^3/uL (150-450); RED BLOOD COUNT 3.55 10^6/uL (3.72-5.28); RED CELL DISTRIBUTION WIDTH 12.8 % (11.5-14.0); SEGMENTED NEUTROPHILS % (AUTO) 77.2 % (42-78); TOTAL CELLS COUNTED % (AUTO) 100 %; WHITE BLOOD COUNT 7.8 10^3/uL (4.0-10.5)
[2018-03-07 09:42] LABS: ANION GAP 9 (5-19); BLOOD UREA NITROGEN 4 mg/dL (7-20); CALCIUM 8.1 mg/dL (8.4-10.2); CARBON DIOXIDE 25 mmol/L (22-30); CHLORIDE 105 mmol/L (98-107); GLUCOSE 102 mg/dL (75-110); POTASSIUM 4.1 mmol/L (3.6-5.0); SODIUM 139.4 mmol/L (137-145)
[2018-03-07] MEDS: GUAIFENESIN 600 MG TABLET.SA PO SCH ×2 (09:48→21:18)
[2018-03-07] MEDS: ENOXAPARIN SODIUM INJ 40 MG/0.4 ML DISP.SYRIN SUBCUT SCH (09:48)
[2018-03-07] MEDS: THIAMINE HCL 100 MG TABLET PO SCH (09:48)
[2018-03-07] MEDS: FOLIC ACID 1 MG TABLET PO SCH (09:48)
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
[2018-03-07 17:19] LABS: ANION GAP 10 (5-19); BLOOD UREA NITROGEN 3 mg/dL (7-20); CALCIUM 8.2 mg/dL (8.4-10.2); CARBON DIOXIDE 23 mmol/L (22-30); CHLORIDE 107 mmol/L (98-107); GLUCOSE 99 mg/dL (75-110); SODIUM 139.5 mmol/L (137-145)
[2018-03-07] MEDS: BUSPIRONE HCL 10 MG TABLET PO SCH (21:18)
[2018-03-07] MEDS: ACETAMINOPHEN 325 MG TABLET PO PRN (23:51)
[2018-03-08] MEDS: CEFAZOLIN 1 GM/D5W RTU 1 GM/50 ML RTUPB IV SCH ×2 (03:38→08:59)
[2018-03-08] MEDS: LANSOPRAZOLE 15 MG TAB.RAP.DR PO SCH (05:43)
[2018-03-08] MEDS: KETOROLAC TROMETHAMINE INJ/PF 30 MG/1 ML SDV IV SCH ×2 (05:43→11:31)
[2018-03-08 06:31] LABS: ABSOLUTE EOSINOPHILS # (AUTO) 0.1 10^3/uL (0.0-0.6); ABSOLUTE LYMPHOCYTES (AUTO) 1.2 10^3/uL (0.5-4.7); ABSOLUTE MONOCYTES (AUTO) 0.8 10^3/uL (0.1-1.4); ABSOLUTE NEUT (AUTO) 4.9 10^3/uL (1.7-8.2); BASOPHILS % (AUTO) 0.4 % (0-2); EOSINOPHILS % (AUTO) 1.8 % (0-6); HEMATOCRIT 31.3 % (36.0-47.0); HEMOGLOBIN 11.2 g/dL (12.0-15.5); LYMPHOCYTES % (AUTO) 16.8 % (13-45); MEAN CORPUSCULAR HEMOGLOBIN 30.6 pg (27.0-33.4); MEAN CORPUSCULAR HGB CONC 35.8 g/dL (32.0-36.0); MEAN CORPUSCULAR VOLUME 85 fl (80-97); MONOCYTES % (AUTO) 11.8 % (3-13); PLATELET COUNT 478 10^3/uL (150-450); RED BLOOD COUNT 3.67 10^6/uL (3.72-5.28); RED CELL DISTRIBUTION WIDTH 12.7 % (11.5-14.0); SEGMENTED NEUTROPHILS % (AUTO) 69.2 % (42-78); TOTAL CELLS COUNTED % (AUTO) 100 %; WHITE BLOOD COUNT 7.1 10^3/uL (4.0-10.5)
[2018-03-08] MEDS: POTASSIUM CHLORIDE 20 MEQ/15 ML UDCUP PO SCH ×2 (08:55→11:30)
[2018-03-08] MEDS: BUTALB/ACETAMINOPHEN/CAFFEINE 1 TAB EACH PO PRN (08:58)
[2018-03-08] MEDS: FOLIC ACID 1 MG TABLET PO SCH (09:42)
[2018-03-08] MEDS: BUSPIRONE HCL 10 MG TABLET PO SCH (09:42)
[2018-03-08] MEDS: THIAMINE HCL 100 MG TABLET PO SCH (09:42)
[2018-03-08] MEDS: GUAIFENESIN 600 MG TABLET.SA PO SCH (09:42)
[2018-03-08] MEDS: ENOXAPARIN SODIUM INJ 40 MG/0.4 ML DISP.SYRIN SUBCUT SCH (09:42)
[2018-03-08 11:01] VITALS: BP 101/51
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
== END 2018-03-08 12:25 | disposition home or self-care (01) | DRG 872 ==
LOC: ER 12:57 → INTOOBSV 16:52 → EH 16:52 → 4N 18:18 → OBSVTOIN 03-06 15:00
PROVIDERS: ADMIT Emergency Medicine; ATTEND Emergency Medicine
DX: A41.51 Sepsis due to Escherichia coli [E. coli] (principal); N39.0 Urinary tract infection, site not specified; R51 Headache; E87.6 Hypokalemia; K29.70 Gastritis, unspecified, without bleeding; E83.42 Hypomagnesemia; K21.9 Gastro-esophageal reflux disease without esophagitis; H53.149 Visual discomfort, unspecified; F10.10 Alcohol abuse, uncomplicated; F17.210 Nicotine dependence, cigarettes, uncomplicated; Y90.9 Presence of alcohol in blood, level not specified; Z71.6 Tobacco abuse counseling
CPT/HCPCS: 36415; 70450; 71046; 71275; 72128; 72131; 76770; 80048; 80053; 80307; 81001; 82803; 83605; 83735; 83935; 84133; 84484; 84703; 85025; 85379; 85610; 87040; 87070; 87077; 87086; 87088; 87186; 87205; 87493; 93005; 93010; 94640; 96365; 96368; 96372; 96375; 99285; 99406; G0378; J0690; J0696; J1200; J1650; J1885; J2060; J2543; J3370; J3475; J3480; J3490; J7030; J7060; J7120; J7620

== ENCOUNTER 2018-03-24 12:52 | Emergency (ER) | payer SELFPAY ==
[2018-03-24 13:00] VITALS: BP 116/64
[2018-03-24] MEDS ORDERED: KETOROLAC TROMETHAMINE INJ/PF 30 MG/1 ML SDV IM ONE (13:58)
--- NOTE | 2018-03-24 14:05 | ER Document Report ---
ED Fall - General Chief Complaint: Hip Pain Stated Complaint: HIP PAIN Time Seen by Provider: 03/24/18 13:47 Mode of Arrival: Ambulatory Information source: Patient Notes: 52-year-old female presents to ED for complaint of headache, left hip pain, left knee pain, left foot pain, low back pain after she fell off the top bunk. She states she was trying to come off the top bunk and she slipped falling landing on her head and left side. Patient states she fell about 730 this morning and is tried to get along without it but she is not able to walk and the pain is getting worse. Patient is alert and oriented respirations regular and unlabored speaking in full sentences pupils equal and react to light. She denies nausea and vomiting. She states she does have a history of migraines. Patient states when she first felt she was very dazed. TRAVEL OUTSIDE OF THE [place] IN LAST 30 DAYS: No - HPI Occurred: This morning Where: Home, Indoors Context: Fell from height Associated symptoms: Dazed/confused - When it first happened Location of injury/pain: Back, Foot, Head, Hip, Knee, Lower extremity Quality of pain: Sharp Severity: Severe Pain Level: 5 - Related data Allergies/Adverse Reactions: No Known Allergies Allergy (Verified 03/24/18 12:53) Past Medical History - General Information source: Patient - Social History Smoking Status: Current Every Day Smoker Cigarette use (# per day): Yes - Half a pack a day Chew tobacco use (# tins/day): No Smoking Education Provided: Yes - 4 minutes Frequency of alcohol use: Rare - 102 times a year Drug Abuse: None Lives with: Spouse/Significant other Family History: Arthritis, CAD, COPD, CVA, Hyperlipidemia, Hypertension, Malignancy. denies: DM, Thyroid Disfunction Patient has suicidal ideation: No Patient has homicidal ideation: No - Past Medical History Cardiac Medical History: Reports: None Pulmonary Medical History: Reports: None EENT Medical History: Reports: None Neurological Medical History: Reports: Hx Migraine Endocrine Medical History: Reports: None Renal/ Medical History: Reports: None Malignancy Medical History: Reports: None GI Medical History: Reports: None Musculoskeletal Medical History: Reports Hx Arthritis, Reports Hx Musculoskeletal Deformity, Reports Hx Musculoskeletal Trauma Skin Medical History: Reports None Psychiatric Medical History: Reports: Hx Depression Traumatic Medical History: Reports: None Infectious Medical History: Reports: None Past Surgical History: Reports: Hx Oral Surgery - Dental surgery, Hx Tubal Ligation - Immunizations Hx Diphtheria, Pertussis, Tetanus Vaccination: Yes - 2005 Review of Systems - Review of Systems Notes: REVIEW OF SYSTEMS: CONSTITUTIONAL : Denies fever, chills, or sweats. Denies recent illness. EENT: Denies eye, ear, throat, or mouth pain or symptoms. Denies nasal or sinus congestion or discharge. Denies throat, tongue, or mouth swelling or difficulty swallowing. CARDIOVASCULAR: Denies chest pain. Denies palpitations or racing or irregular heart beat. Denies ankle edema. RESPIRATORY: Denies cough, cold, or chest congestion. Denies shortness of breath, difficulty breathing, or wheezing. GASTROINTESTINAL: Denies abdominal pain or distention. Denies nausea, vomiting , or diarrhea. Denies blood in vomitus, stools, or per rectum. Denies black, tarry stools. Denies constipation. GENITOURINARY: Denies difficulty urinating, painful urination, burning, frequency, blood in urine, or discharge. FEMALE GENITOURINARY: Denies vaginal bleeding, heavy or abnormal periods, irregular periods. Denies vaginal discharge or odor. MUSCULOSKELETAL: Complains of low back pain left femur knee and foot pain she states it hurts to turn her foot in or out or to put her legs together. SKIN: Denies rash, lesions or sores. HEMATOLOGIC : Denies easy bruising or bleeding. LYMPHATIC: Denies swollen, enlarged glands. NEUROLOGICAL: She states when she first fell she was very dazed it took a few minutes to get straight and she has had a headache since then. Denies passing out or loss of consciousness. Denies dizziness or lightheadedness. Denies weakness or paralysis or loss of use of either side. Denies problems with gait or speech. Denies sensory loss, numbness, or tingling. Denies seizures. PHYSICAL EXAMINATION: GENERAL: Well-appearing, well-nourished and in no acute distress. HEAD: Atraumatic, normocephalic. EYES: Pupils equal round and reactive to light, extraocular movements intact, conjunctiva are normal. ENT: Nares patent, oropharynx clear without exudates. Moist mucous membranes. NECK: Normal range of motion, supple without lymphadenopathy LUNGS: Breath sounds clear to auscultation bilaterally and equal. No wheezes rales or rhonchi. HEART: Regular rate and rhythm without murmurs ABDOMEN: Soft, nontender, nondistended abdomen. No guarding, no rebound. No masses appreciated. Female : deferred Musculoskeletal: Limited range of motion to her knee hip and foot on the left side pain with palpation to the left hip knee foot low back and left side of her head. NEUROLOGICAL: Cranial nerves grossly intact. Normal speech, normal gait. Normal sensory, motor exams PSYCH: Normal mood, normal affect. SKIN: Warm, Dry, normal turgor, no rashes or lesions noted. PSYCHIATRIC: Denies anxiety or stress. Denies depression, suicidal ideation, or homicidal ideation. ALL OTHER SYSTEMS REVIEWED AND NEGATIVE. Dictation was performed using [employer] voice recognition software Physical Exam - Vital signs Vitals: Temp Pulse Resp BP Pulse Ox 98.7 F 107 H 14 116/64 97 03/24/18 12:58 03/24/18 12:58 03/24/18 12:58 03/24/18 12:58 03/24/18 12:58 Course - Re-evaluation Re-evalutation: 03/24/18 16:05 Discussed all x-rays and CT of the head with patient. All CTs and x-rays did not show anything acute. Patient will be discharged home with instructions for elevation ice ibuprofen and follow-up with her primary doctor. She verbalized understanding of instructions. She said last time she waited and it was a bad problem that is why she came in she was scared. She states that the start of Toradol actually helped her. - Vital Signs Vital signs: Temp Pulse Resp BP Pulse Ox 98.7 F 107 H 14 116/64 97 03/24/18 12:58 03/24/18 12:58 03/24/18 12:58 03/24/18 12:58 03/24/18 12:58 - Diagnostic Test Radiology reviewed: Image reviewed, Reports reviewed Discharge - Discharge Clinical Impression: Multiple contusions Fall Qualifiers: Encounter type: initial encounter Qualified Code(s): W19.XXXA - Unspecified fall, initial encounter Headache Qualifiers: Headache type: unspecified Headache chronicity pattern: unspecified pattern Intractability: not intractable Qualified Code(s): R51 - Headache Condition: Stable Disposition: HOME, SELF-CARE Instructions: Use of Pzon-Gzd-Upebvnv Ibuprofen ([facility]) Additional Instructions: HEAD INJURY PRECAUTIONS: At this point, there is no evidence that your head injury is serious. Observation is necessary, however. Take only clear liquids for the first few hours, unless told otherwise by the doctor. If no pain medication was prescribed, you may take acetaminophen according to the directions on the bottle. Do not take any medication that may alter your level of alertness (unless you've discussed it with the doctor first) . Limit activity for the first 24 hours. Bed rest is best. During the first 24 hours, check to see approximately every two to three hours that the patient is easily arousable, responds normally, and can perform common tasks such as walking without difficulty. Contact your doctor or go to the hospital if any of the following things occur: Persistent vomiting, difficulty in arousing the patient, worsening or continued headache, or failure to improve as expected. Head injuries can cause symptoms that persist for a few days or even a few weeks. CONTUSION: Your injury has resulted in a contusion -- a crushing of the deep tissues. No injury to important structures was detected during the physician's exam. Contusions vary in the amount of pain they cause, and in the length of time required for healing. Typically, the area will become bruised, and will remain painful to touch for two or three weeks. However, most patients are back to working and playing within a few days. After the initial period of rest and cold-packs, your symptoms (together with the doctor's recommendations) will determine how rapidly you can get back to full activity. Usually this means "do what feels okay, but don't do things that hurt." If re-examination was recommended, it's important to follow up as instructed. Call the doctor or return any time if pain increases, if swelling becomes severe, if you develop numbness or weakness in an injured extremity, or if any other alarming symptoms occur. LOW BACK PAIN: Three out of every four people will have an episode of disabling back pain during their lifetime. Most commonly the pain is due to straining of the muscles and ligaments in the low back. Usual treatment includes: (1) Rest on a firm surface. Avoid lying on your stomach. (2) Ice pack the painful area. After a few days, gentle heat may be used intermittently to relax the area, or ice packs can be continued. (3) Medication may be needed -- muscle relaxers and antiinflammatory medicines are commonly used. (4) As the back improves, exercises are prescribed to strengthen the back and abdominal muscles. Your doctor will advise you on the proper care for your back at each stage in your recovery. You may be better in a few days -- or healing may take several weeks. If new symptoms of a "herniated disc" (radiation of pain, numbness, or tingling down the back of the leg or weakness in the leg) occur, you should be re-examined. Further testing may be necessary. USE OF TYLENOL (ACETAMINOPHEN): Acetaminophen may be taken for pain relief or fever control. It's much safer than aspirin, offering a wider range of "safe" dosages. It is safe during . Some brand names are Tylenol, Panadol, Datril, Anacin 3, Tempra, and Liquiprin. Acetaminophen can be repeated every four hours. The following are maximum recommended dosages: WEIGHT Dose Drops Elixir Chewable( 80mg) (LBS.) drprs=droppers tsp=teaspoon 6 40 mg 0.4 ml (1/2) 6-11 80 mg 0.8 ml (full) tsp 1 tab 12-16 120 mg 1 1/2 drprs 3/4 tsp 1 1/2 tabs 17-23 160 mg 2 drprs 1 tsp 2 tabs 24-30 240 mg 3 drprs 1 1/2 tsp 3 tabs 30-35 320 mg 2 tsp 4 tabs 36-41 360 mg 2 1/4 tsp 4 1/2 tabs 42-47 400 mg 2 1/2 tsp 5 tabs 48-53 480 mg 3 tsp 6 tabs 54-59 520 mg 3 1/4 tsp 6 1/2 tabs 60-64 560 mg 3 1/2 tsp 7 tabs 65-70 600 mg 3 3/4 tsp 7 1/2 tabs 71-76 640 mg 4 tsp 8 tabs 77-82 720 mg 4 1/2 tsp 9 tabs 83-88 800 mg 5 tsp 10 tabs >89 pounds or adults 650 mg to 900 mg Acetaminophen can be repeated every four hours. Maximum dose not to exceed 4000 mg a day. These maximum recommended dosages are slightly higher than the dosages written on the product container, but these dosages are very safe and below the toxic dosage for acetaminophen. ICE PACKS: Apply ice packs frequently against the painful area. Many different schedules are recommended, such as "20 minutes on, 20 minutes off" or "one hour ice, two hours rest." If you need to work, you may need to go longer between ice treatments. You should plan to have the area ice packed AT LEAST one fourth of the time. The ice should be applied over the wrap, tape, or splint, or over a layer of cloth -- not directly against the skin. Some ice bags have a built-in cloth and can be put directly on the skin. FOLLOW-UP CARE: If you have been referred to a physician for follow-up care, call the physician s office for an appointment as you were instructed or within the next two days. If you experience worsening or a significant change in your symptoms, notify the physician immediately or return to the Emergency Department at any time for re-evaluation. Forms: Smoking Cessation Education Referrals: [facility] [Provider Group] - Follow up as needed
--- NOTE | 2018-03-24 15:14 | RADIOLOGY REPORT (SQ) ---
EXAM DESCRIPTION: KNEE LEFT 4 VIEW COMPLETED DATE/TIME: 03/24/2018 3:02 pm REASON FOR STUDY: fell off top bunk pain is listed areas COMPARISON: None. NUMBER OF VIEWS: Four views. TECHNIQUE: AP, lateral, and both oblique radiographic images acquired of the left knee. LIMITATIONS: None. FINDINGS: MINERALIZATION: Normal. BONES: No acute fracture or dislocation. No worrisome bone lesions. JOINT: No effusion. SOFT TISSUES: No soft tissue swelling. No radio-opaque foreign body. OTHER: No other significant finding. IMPRESSION: NEGATIVE STUDY OF THE LEFT KNEE. NO RADIOGRAPHIC EVIDENCE OF ACUTE INJURY. TECHNICAL DOCUMENTATION: JOB ID: [id number] [email or web address]- All Rights Reserved Reading location - IP/workstation name: [email or web address]
--- NOTE | 2018-03-24 15:14 | RADIOLOGY REPORT (SQ) ---
EXAM DESCRIPTION: FOOT LEFT COMPLETE COMPLETED DATE/TIME: 03/24/2018 3:02 pm REASON FOR STUDY: fell off top bunk pain is listed areas COMPARISON: None. NUMBER OF VIEWS: Three views. TECHNIQUE: AP, lateral and oblique radiographic images acquired of the left foot. LIMITATIONS: None. FINDINGS: MINERALIZATION: Normal. BONES: No acute fracture or dislocation. No worrisome bone lesions. JOINTS: No effusions. SOFT TISSUES: No soft tissue swelling. No foreign body. OTHER: No other significant finding. IMPRESSION: NEGATIVE STUDY OF THE LEFT FOOT. NO RADIOGRAPHIC EVIDENCE OF ACUTE INJURY. TECHNICAL DOCUMENTATION: JOB ID: [id number] [employer]- All Rights Reserved Reading location - IP/workstation name: [email or web address]
--- NOTE | 2018-03-24 15:15 | RADIOLOGY REPORT (SQ) ---
EXAM DESCRIPTION: ANKLE LEFT AP/LATERAL COMPLETED DATE/TIME: 03/24/2018 3:02 pm REASON FOR STUDY: fell off top bunk pain is listed areas COMPARISON: None. NUMBER OF VIEWS: Three views. TECHNIQUE: AP, lateral, and oblique radiographic images acquired of the left ankle. LIMITATIONS: None. FINDINGS: MINERALIZATION: Normal. BONES: No acute fracture or dislocation. No worrisome bone lesions. JOINTS: No effusions. SOFT TISSUES: No soft tissue swelling. No foreign body. OTHER: No other significant finding. IMPRESSION: NEGATIVE STUDY OF THE LEFT ANKLE. NO RADIOGRAPHIC EVIDENCE OF ACUTE INJURY. TECHNICAL DOCUMENTATION: JOB ID: [id number] [facility]- All Rights Reserved Reading location - IP/workstation name: [email or web address]
--- NOTE | 2018-03-24 15:15 | RADIOLOGY REPORT (SQ) ---
EXAM DESCRIPTION: FEMUR LEFT COMPLETED DATE/TIME: 03/24/2018 3:02 pm REASON FOR STUDY: fell off top bunk pain is listed areas COMPARISON: None. NUMBER OF VIEWS: Two views. TECHNIQUE: Two radiographic images acquired of the left femur to include hip and knee in at least on e projection. LIMITATIONS: None. FINDINGS: MINERALIZATION: Normal. BONES: No acute fracture. No worrisome bone lesions. SOFT TISSUES: No obvious swelling or foreign body. OTHER: No other significant finding. IMPRESSION: NEGATIVE STUDY OF THE LEFT FEMUR. NO RADIOGRAPHIC EVIDENCE OF ACUTE INJURY. TECHNICAL DOCUMENTATION: JOB ID: [id number] [employer]- All Rights Reserved Reading location - IP/workstation name: [email or web address]
--- NOTE | 2018-03-24 15:18 | RADIOLOGY REPORT (SQ) ---
EXAM DESCRIPTION: CT HEAD WITHOUT COMPLETED DATE/TIME: 03/24/2018 3:07 pm REASON FOR STUDY: fell off top bunk pain is listed areas COMPARISON: 03/03/2018 TECHNIQUE: Axial images acquired through the brain without intravenous contrast. Images reviewed wi th bone, brain and subdural windows. Additional sagittal and coronal reconstructions were generated. Images stored on PACS. All CT scanners at this facility use dose modulation, iterative reconstruction, and/or weight based d osing when appropriate to reduce radiation dose to as low as reasonably achievable (ALARA). [facility]: Dose Right [facility]: CareDose [facility]: Dose Right [facility]: Teradose 4D [facility]: Smart [employer] RADIATION DOSE: CT Rad equipment meets quality standard of care and radiation dose reduction techniq ues were employed. CTDIvol: 53.2 mGy. DLP: 1150 mGy-cm. mGy. LIMITATIONS: None. FINDINGS: VENTRICLES: Normal size and contour. CEREBRUM: No masses. No hemorrhage. No midline shift. No evidence for acute infarction. Normal gra y/white matter differentiation. No areas of low density in the white matter. CEREBELLUM: No masses. No hemorrhage. No alteration of density. No evidence for acute infarction. EXTRAAXIAL SPACES: No fluid collections. No masses. ORBITS AND GLOBE: No intra- or extraconal masses. Normal contour of globe without masses. CALVARIUM: No fracture. PARANASAL SINUSES: No fluid or mucosal thickening. SOFT TISSUES: No mass or hematoma. OTHER: No other significant finding. IMPRESSION: NORMAL BRAIN CT WITHOUT CONTRAST. EVIDENCE OF ACUTE STROKE: NO. COMMENT: Quality ID # [id number]: Final reports with documentation of one or more dose reduction techniques (e.g., Automated exposure control, adjustment of the mA and/or kV according to patient size, use of iterative reconstruction technique) TECHNICAL DOCUMENTATION: JOB ID: [id number] [email or web address]- All Rights Reserved Reading location - IP/workstation name: [email or web address]
--- NOTE | 2018-03-24 15:21 | RADIOLOGY REPORT (SQ) ---
EXAM DESCRIPTION: L SPINE WHOLE COMPLETED DATE/TIME: 03/24/2018 3:02 pm REASON FOR STUDY: fell off top bunk pain is listed areas COMPARISON: April 2013 NUMBER OF VIEWS: Five views including obliques. TECHNIQUE: AP, lateral, oblique, and sacral radiographic images acquired of the lumbar spine. LIMITATIONS: None. FINDINGS: MINERALIZATION: Normal. SEGMENTATION: Normal. No transitional anatomy. ALIGNMENT: There is a lumbar scoliosis convex to the left with a rotatory component. VERTEBRAE: Maintained height. No fracture or worrisome bone lesion. DISCS: Preserved height. Minimal osteophytic lipping is identified. POSTERIOR ELEMENTS: Pedicles and facets are intact. No pars defect or posterior arch defects. HARDWARE: None in the spine. PARASPINAL SOFT TISSUES: Normal. PELVIS: Intact as visualized. No fractures or worrisome bone lesions. SI joints intact. OTHER: No other significant finding. IMPRESSION: Lumbar scoliosis convex to the left. Minimal degenerative lipping. Other findings as n oted above TECHNICAL DOCUMENTATION: JOB ID: [id number] [employer]- All Rights Reserved Reading location - IP/workstation name: [email or web address]
== END 2018-03-24 16:33 | disposition home or self-care (01) ==
LOC: ER 12:52
DX: T14.8XXA Other injury of unspecified body region, initial encounter (principal); R51 Headache; M25.552 Pain in left hip; M25.562 Pain in left knee; M79.672 Pain in left foot; M54.5 Low back pain; M89.8X5 Other specified disorders of bone, thigh; W06.XXXA Fall from bed, initial encounter; Y93.89 Activity, other specified; Y92.003 Bedroom of unspecified non-institutional (private) residence as the place of occurrence of the external cause; F17.210 Nicotine dependence, cigarettes, uncomplicated; Z71.6 Tobacco abuse counseling
CPT/HCPCS: 99406; 99284; 96372; 73600; 73552; 73630; 73564; 72110; 70450; J1885

== ENCOUNTER → 2018-04-01 | Outpatient (CLI) | payer OTHER ==
[2018-04-01 11:03] LABS: ALANINE AMINOTRANSFERASE 13 U/L (9-52); ALBUMIN 3.5 g/dL (3.5-5.0); ALKALINE PHOSPHATASE 99 U/L (38-126); ANION GAP 9 (5-19); ASPARTATE AMINO TRANSFERASE 16 U/L (14-36); BILIRUBIN,DIRECT 0.3 mg/dL (0.0-0.4); BILIRUBIN,TOTAL 0.6 mg/dL (0.2-1.3); BLOOD UREA NITROGEN 9 mg/dL (7-20); CALCIUM 9.4 mg/dL (8.4-10.2); CARBON DIOXIDE 28 mmol/L (22-30); CHLORIDE 108 mmol/L (98-107); CHOLESTEROL 162.42 mg/dL (0-200); GLUCOSE 85 mg/dL (75-110); POTASSIUM 4.2 mmol/L (3.6-5.0); SODIUM 144.5 mmol/L (137-145); TOTAL PROTEIN 6.6 g/dL (6.3-8.2); TRIGLYCERIDES 125 mg/dL (<150)
[2018-04-01 11:15] LABS: DIRECT LDL 98 mg/dL (<100)
== END ==
LOC: CCC 09:31
DX: Z00.00 Encounter for general adult medical examination without abnormal findings (principal)
CPT/HCPCS: 36415; 80053; 80061; 83036; 84436; 84443; 87086; 87088; 87186

== ENCOUNTER 2020-02-16 23:32 | Emergency (ER) | payer SELFPAY ==
--- NOTE | 2020-02-17 00:24 | RADIOLOGY REPORT (SQ) ---
EXAM DESCRIPTION: XR FOREARM 2 VIEWS COMPLETED DATE/TME: 02/16/2020 23:35 CLINICAL HISTORY: 54 years, Female, DEFORMITY COMPARISON: None. NUMBER OF VIEWS: 2 TECHNIQUE: AP and lateral views of the right forearm were obtained LIMITATIONS: None. FINDINGS: There is a comminuted distal radial metaphyseal fracture with intra-articular extension to the dorsal aspect of the radiocarpal joint. There is mild impaction and there is mild apex volar angulation at the fracture site. There is also approximately 3 mm displacement of the major fracture fragments. There is no dislocation. There is no lytic or blastic bone lesion. IMPRESSION: Distal radial fracture as described above. copyright 2010 [employer]- All Rights Reserved
[2020-02-17] MEDS ORDERED: PROPOFOL INJ 200 MG/20 ML VIAL IV ONE (00:31)
[2020-02-17] MEDS ORDERED: NORMAL SALINE 1000 ML 1,000 ML IV ONE (00:34)
--- NOTE | 2020-02-17 00:39 | ER Document Report ---
ED General - General Stated Complaint: INJURY TO ARM Time Seen by Provider: 02/17/20 00:02 Primary Care Provider: [facility] [Primary Care Provider] - Follow up as needed TRAVEL OUTSIDE OF THE [place] IN LAST 30 DAYS: No - HPI Notes: Patient is a 54-year-old female who presents to the emergency department for evaluation after a fall. She states she was walking up the steps and tripped. She fell onto her outstretched right hand. She is right-hand dominant. She has pain in her right wrist that she rates a 4 out of 5. She denies any numbness or tingling. She did hit her head but denies losing consciousness. She states the last time she had anything to eat was oatmeal breakfast. She states that she drank 2 beers following her injury trying to get it to stop hurting, it did not help. - Related Data Allergies/Adverse Reactions: No Known Allergies Allergy (Verified 03/24/18 12:53) Past Medical History - General Information source: Patient - Social History Smoking Status: Current Every Day Smoker Frequency of alcohol use: Heavy Family History: Arthritis, CAD, COPD, CVA, Hyperlipidemia, Hypertension, Malignancy. denies: DM, Thyroid Disfunction - Past Medical History Cardiac Medical History: Denies: Hx Coronary Artery Disease, Hx Heart Attack, Hx Hypertension Pulmonary Medical History: Denies: Hx Asthma, Hx Bronchitis, Hx COPD, Hx Pneumonia Neurological Medical History: Reports: Hx Migraine. Denies: Hx Cerebrovascular Accident, Hx Seizures Renal/ Medical History: Denies: Hx Peritoneal Dialysis Musculoskeletal Medical History: Reports Hx Arthritis, Reports Hx Musculoskeletal Deformity, Reports Hx Musculoskeletal Trauma Psychiatric Medical History: Reports: Hx Depression Past Surgical History: Reports: Hx Oral Surgery - Dental surgery, Hx Tubal Ligation. Denies: Hx Hysterectomy, Hx Pacemaker - Immunizations Hx Diphtheria, Pertussis, Tetanus Vaccination: Yes - 2006 Review of Systems - Review of Systems Constitutional: No symptoms reported EENT: No symptoms reported Cardiovascular: No symptoms reported Respiratory: No symptoms reported Gastrointestinal: No symptoms reported Genitourinary: No symptoms reported Musculoskeletal: See HPI Skin: No symptoms reported Neurological/Psychological: No symptoms reported -: Yes All other systems reviewed and negative Physical Exam - Vital signs Vitals: Temp 98.2 F 02/16/20 23:32 - Notes Notes: This is a 54-year-old female who appears her stated age, no acute distress. Vital signs reviewed, please refer to chart. Head is normocephalic, atraumatic. Pupils equal round, reactive to light. Neck is supple without meningismus. Heart is regular rate and rhythm. Lungs are clear to auscultation bilaterally. Abdomen is soft, nontender, normoactive bowel sounds throughout. Extremities without cyanosis, clubbing. Posterior calves are nontender. Peripheral pulses a re equal. Skin is warm and dry. Patient is awake, alert, oriented x3. Cranial nerves II - XII are grossly intact without focal neurological deficits. Strength is plus 5 out of 5 bilateral upper and lower extremities. Sensation is intact. Reflexes symmetrical. Intact iustge-cjpk-opkqox, rapid alternating movements, [id number]-bk-[id number]. Examination of the right upper extremity yields obvious deformity at the right wrist. She is neurovascularly intact distally. Radial pulses 2+. She has no tenderness over the shoulder, full range of motion of the shoulder, elbow, fingers, thumb. Course - Re-evaluation Re-evalutation: 02/17/20 00:38 Patient presents to the emergency department for evaluation after a right wrist injury. She is right-hand dominant. She has significant deformity. Decision was made to proceed with reduction. This will be done with conscious sedation. This was explained in great detail to the patient. Questions were sought and answered. Consent was signed and placed on the chart, please see separate note for procedure. Because she did hit her head and she has a history of heavy drinking, decision was made to perform a CT scan of the head before proceeding. She is currently stable, we will continue to monitor. 02/17/20 04:[address] was unremarkable. Patient's sedation and risk reduction went well, neurovascularly intact following. The patient remained tachycardic. She has a history of tachycardia, states she has been told that by her primary care provider in the past. She is also been told she has a history of anxiety, she states he feels anxious, she believes that is why she is tachycardic at this time. She states she is very anxious. She does not want to stay for a work-up. She is pink conjunctive a. She is acting appropriately. She is able to walk without difficulty. She states she just wants to leave the department. She will sign out AGAINST MEDICAL ADVICE. Otherwise I will send her with a prescription for some Willet and referral onto Dr. Blackmon, our on-call orthopedic surgeon. She is to return to the emergency department worsening or new concerning symptoms of any sort. - Vital Signs Vital signs: Temp Pulse Resp BP Pulse Ox 98.9 F 139 H 17 180/110 H 94 02/17/20 04:35 02/17/20 03:42 02/17/20 03:42 02/17/20 03:42 02/17/20 03:42 - Laboratory Result Diagrams: 02/17/20 01:32 02/17/20 01:32 Laboratory results interpreted by me: 02/17/20 01:32 Chloride 108 H Total Bilirubin 1.5 H - Diagnostic Test Radiology reviewed: Image reviewed Procedures - Conscious Sedation Conscious sedation Time started: 03:04 Consent obtained: Yes Indication: Reduction of right wrist fracture Last meal: 0800 on 02/16/2020 Pt with a mild systemic disease.: P2. - ASA Classification. Mallampati Classification: Class 1 Used during procedure: Suction available, IV access obtained, Pulse ox on pt., medical science liaison on pt. Medications administered: Diprivan - 50 mg IV Reversal agents: None I personally performed/intraservice time: Sedation, Procedure, 30 min or less Complications: No - Joint Reduction/Fracture Care Right Wrist Time completed: 03:04 Consent obtained: Yes Conscious sedation: Yes Pre-procedure NV exam: Yes Fracture: Closed Post-procedure NV exam: Yes Reduction attempts: 1 Complications: No - Eyes Discharge - Discharge Clinical Impression: Right radial fracture Qualifiers: Encounter type: initial encounter Fracture type: closed Fracture alignment: displaced Condition: Stable Disposition: AGAINST MEDICAL ADVICE Instructions: Fractured Radius ([facility]), Temporary Splint ([facility]) Additional Instructions: Contact Dr. Blackmon for follow-up, call his office in the morning for further evaluation and to schedule an appointment. Willet as needed for severe pain. Please do not mix this with alcohol. Your heart rate was high. You have stated this is due to anxiety, you have elected to leave without having this worked up. Please discuss this with your primary care provider as well. Return to the emergency department with worsening or new concerning symptoms of any sort. Referrals: [facility] [Primary Care Provider] - Follow up as needed VICK BLACKMON MD [ACTIVE STAFF] - Follow up as needed
--- NOTE | 2020-02-17 01:17 | RADIOLOGY REPORT (SQ) ---
CT HEAD WITHOUT IV CONTRAST CLINICAL STATEMENT: head injury TECHNIQUE: Axial CT images from skull base to vertex without IV contrast. This exam was performed according to our departmental dose optimization program, and includes the following measures where applicable: automated exposure control, adjustment of the mAs and/or kVp according to patient size and/or exam, and an iterative reconstruction algorithm. COMPARISON: CT scan of the head without contrast March 24, 2018 FINDINGS: There is no acute intracranial hemorrhage, mass, mass effect or abnormal extra-axial fluid collection. No evidence of an acute territorial infarct is identified. The ventricles are normal. Calvaria: The skull base and calvaria demonstrate no abnormality. Paranasal sinuses: Visualized portions of the orbits and paranasal sinuses are unremarkable. skull base: Unremarkable IMPRESSION: No acute process. No significant interval change.
[2020-02-17 01:52] LABS: ABSOLUTE BASOPHILS # (AUTO) 0.1 10^3/uL (0.0-0.2); ABSOLUTE EOSINOPHILS # (AUTO) 0.1 10^3/uL (0.0-0.6); ABSOLUTE LYMPHOCYTES (AUTO) 1.4 10^3/uL (0.5-4.7); ABSOLUTE MONOCYTES (AUTO) 0.5 10^3/uL (0.1-1.4); ABSOLUTE NEUT (AUTO) 4.5 10^3/uL (1.7-8.2); HEMATOCRIT 38.8 % (36.0-47.0); HEMOGLOBIN 13.9 g/dL (12.0-15.5); LYMPHOCYTES % (AUTO) 21.9 % (13-45); MEAN CORPUSCULAR HEMOGLOBIN 32.1 pg (27.0-33.4); MEAN CORPUSCULAR HGB CONC 35.8 g/dL (32.0-36.0); MEAN CORPUSCULAR VOLUME 90 fl (80-97); MONOCYTES % (AUTO) 8.2 % (3-13); PLATELET COUNT 231 10^3/uL (150-450); RED BLOOD COUNT 4.33 10^6/uL (3.72-5.28); RED CELL DISTRIBUTION WIDTH 12.3 % (11.5-14.0); SEGMENTED NEUTROPHILS % (AUTO) 67.9 % (42-78); TOTAL CELLS COUNTED % (AUTO) 100 %; WHITE BLOOD COUNT 6.6 10^3/uL (4.0-10.5)
[2020-02-17 01:59] LABS: ALBUMIN 4.3 g/dL (3.5-5.0); ALKALINE PHOSPHATASE 101 U/L (38-126); ANION GAP 9 (5-19); ASPARTATE AMINO TRANSFERASE 35 U/L (14-36); BILIRUBIN,DIRECT 0.3 mg/dL (0.0-0.4); BILIRUBIN,TOTAL 1.5 mg/dL (0.2-1.3); BLOOD UREA NITROGEN 10 mg/dL (7-20); CALCIUM 9.3 mg/dL (8.4-10.2); CARBON DIOXIDE 24 mmol/L (22-30); CHLORIDE 108 mmol/L (98-107); GLUCOSE 84 mg/dL (75-110); POTASSIUM 4.6 mmol/L (3.6-5.0); TOTAL PROTEIN 6.9 g/dL (6.3-8.2)
[2020-02-17] MEDS ORDERED: HYDROCODONE/ACETAMINOPHEN 5-325 MG (6 TAB/ER DISP) PO PRN (03:23)
[2020-02-17] MEDS ORDERED: FENTANYL CITRATE INJ/PF 100 MCG/2 ML AMPUL IV ONE (03:23)
--- NOTE | 2020-02-17 03:33 | RADIOLOGY REPORT (SQ) ---
CLINICAL HISTORY: post reduction COMPARISON: None. TECHNIQUE: XR WRIST 1-2 VIEWS 02/17/2020 3:09 AM CDT FINDINGS: There is a mildly comminuted fracture of the distal radius. There is mild angulation. There may be intra-articular extension. Cast material is in place. Soft tissues are unremarkable. IMPRESSION: Distal radius fracture.
[2020-02-17 05:09] VITALS: BP 130/109
== END 2020-02-17 05:20 | disposition left against medical advice (07) ==
LOC: ER 23:32
DX: S52.591A Other fractures of lower end of right radius, initial encounter for closed fracture (principal); S09.90XA Unspecified injury of head, initial encounter; W10.9XXA Fall (on) (from) unspecified stairs and steps, initial encounter; Y92.009 Unspecified place in unspecified non-institutional (private) residence as the place of occurrence of the external cause; F17.200 Nicotine dependence, unspecified, uncomplicated; R00.0 Tachycardia, unspecified; Z53.20 Procedure and treatment not carried out because of patient's decision for unspecified reasons
CPT/HCPCS: 99285; 96361; 99152; 96374; 36415; 85025; 80053; 73090; 73100; 70450; 25605; J3010; J7030; J2704

== ENCOUNTER → 2020-03-26 | Outpatient (CLI) | payer SELFPAY ==
--- NOTE | 2020-03-26 13:52 | RADIOLOGY REPORT (SQ) ---
EXAM DESCRIPTION: CHEST 2 VIEWS IMAGES COMPLETED DATE/TIME: 03/26/2020 1:43 pm REASON FOR STUDY: Z01.811 ENCOUNTER FOR PREPROCEDURAL RESPIRATORY EXAMINATION COMPARISON: 03/03/2018 EXAM PARAMETERS: NUMBER OF VIEWS: two views TECHNIQUE: Digital Frontal and Lateral radiographic views of the chest acquired. RADIATION DOSE: NA LIMITATIONS: none FINDINGS: LUNGS AND PLEURA: No opacities, masses or pneumothorax. No pleural effusion. MEDIASTINUM AND HILAR STRUCTURES: No masses or contour abnormalities. HEART AND VASCULAR STRUCTURES: Heart normal size. No evidence for failure. BONES: No acute findings. HARDWARE: None in the chest. OTHER: No other significant finding. IMPRESSION: NO ACUTE RADIOGRAPHIC FINDING IN THE CHEST. TECHNICAL DOCUMENTATION: JOB ID: [id number] 2010 [employer]- All Rights Reserved Reading location - IP/workstation name: [email or web address]
== END ==
LOC: RAD 13:30
PROVIDERS: ATTEND Orthopaedic Surgery
DX: Z01.811 Encounter for preprocedural respiratory examination (principal); S52.501D Unspecified fracture of the lower end of right radius, subsequent encounter for closed fracture with routine healing; X58.XXXD Exposure to other specified factors, subsequent encounter; R54 Age-related physical debility; F17.200 Nicotine dependence, unspecified, uncomplicated
CPT/HCPCS: 71046

== ENCOUNTER 2020-03-27 09:22 | Day surgery (SDC) | payer SELFPAY ==
[2020-03-26 12:42] LABS: HEMATOCRIT 39.5 % (36.0-47.0); HEMOGLOBIN 14.1 g/dL (12.0-15.5); MEAN CORPUSCULAR HEMOGLOBIN 32.2 pg (27.0-33.4); MEAN CORPUSCULAR HGB CONC 35.6 g/dL (32.0-36.0); MEAN CORPUSCULAR VOLUME 91 fl (80-97); PLATELET COUNT 273 10^3/uL (150-450); RED BLOOD COUNT 4.37 10^6/uL (3.72-5.28); RED CELL DISTRIBUTION WIDTH 12.3 % (11.5-14.0); WHITE BLOOD COUNT 5.8 10^3/uL (4.0-10.5)
[2020-03-26 13:03] LABS: ANION GAP 11 (5-19); BLOOD UREA NITROGEN 5 mg/dL (7-20); CALCIUM 9.3 mg/dL (8.4-10.2); CARBON DIOXIDE 27 mmol/L (22-30); CHLORIDE 104 mmol/L (98-107); GLUCOSE 86 mg/dL (75-110); POTASSIUM 3.4 mmol/L (3.6-5.0)
[2020-03-26 13:09] LABS: APPEARANCE,URINE CLEAR; BILIRUBIN,URINE NEGATIVE (NEGATIVE); COLOR,URINE YELLOW; GLUCOSE, URINE NEGATIVE (NEGATIVE); KETONES,URINE NEGATIVE (NEGATIVE); LEUKOCYTE ESTERASE,URINE SMALL (NEGATIVE); NITRITE,URINE NEGATIVE (NEGATIVE); PROTEIN,URINE NEGATIVE (NEGATIVE); URINE SPECIFIC GRAVITY 1.011
--- NOTE | 2020-03-26 17:37 | EKG REPORT ---
SEVERITY:- BORDERLINE ECG - SINUS RHYTHM BORDERLINE T ABNORMALITIES, ANTERIOR LEADS : Confirmed by: Goldy Atwood MD 26-Mar-2020 17:36:28
[~2020-03-27 09:22] MED LIST: CEFAZOLIN 2 GM/D5W RTU 2 GM/50 ML RTUPB IV PRN; DEXAMETHASONE SOD PHOSPHATE INJ 4 MG/1 ML VIAL ONE; FENTANYL CITRATE INJ/PF 100 MCG/2 ML AMPUL ONE; MIDAZOLAM 2 MG/2 ML INJ ONE; ONDANSETRON HCL INJ/PF 4 MG/2 ML SDV ONE; PROPOFOL INJ 200 MG/20 ML VIAL IV ONE
[2020-03-27] MEDS ORDERED: CEFAZOLIN 2 GM/D5W RTU 2 GM/50 ML RTUPB IV ONE (09:52)
[2020-03-27] MEDS ORDERED: BUPIVACAINE HCL 0.5 % INJ/PF 30 ML SDV ONE (10:14)
[2020-03-27] MEDS ORDERED: LIDOCAINE 0.5% INJ-PF (5 MG/ML) 50 ML SDV ONE (10:30)
[2020-03-27] MEDS ORDERED: ROPIVACAINE HCL 0.2% INJ/PF (2 MG/ML) 20 ML SDV ONE (10:41)
[2020-03-27] MEDS ORDERED: ONDANSETRON HCL INJ/PF 4 MG/2 ML SDV IV PRN (11:36)
[2020-03-27] MEDS ORDERED: OXYCODONE-ACETAMINOPHEN 5-325 MG TABLET PO PRN ×3 (11:36→12:50)
[2020-03-27] MEDS ORDERED: PROMETHAZINE HCL INJ 25 MG/1 ML VIAL IV PRN ×2 (11:36)
[2020-03-27] MEDS ORDERED: MORPHINE SULFATE 10 MG/ML INJ IV PRN (11:36)
[2020-03-27] MEDS ORDERED: MEPERIDINE HCL/PF INJ 25 MG/1 ML DISP.SYRIN IV PRN (11:36)
[2020-03-27] MEDS ORDERED: DIPHENHYDRAMINE HCL 50 MG/ML VIAL IV PRN (11:36)
[2020-03-27] MEDS ORDERED: FENTANYL CITRATE INJ/PF 100 MCG/2 ML AMPUL IV PRN ×3 (11:36)
--- NOTE | 2020-03-27 12:50 | Discharge Summary ---
Discharge Summary (SDC) - Discharge Final Diagnosis: Right distal radius fracture Date of Surgery: 03/27/20 Condition: Good Treatment or Instructions: Schedule Follow Up w/ Dr. Arvin Parnell @ [facility] for Surgery to be seen in 10-14 days or as scheduled [place]: [place]: [place]: Ice and elevate Keep splint clean/dry/intact, do not remove. If your fingers become numb please unwrap the Carlos A wrap but leave the splint in place, if the sensation does not return within 30 minutes please return to the emergency department. May begin finger range of motion attempting to make full fist. Please use ibuprofen (Motrin or Advil) 600-800 mg every 8 hours as needed for pain or fever DO NOT TAKE w/ TORADOL may use once TORADOL complete. You may also use acetaminophen (Tylenol) 1000 mg every 4-6 hours as needed for pain or fever. Please be aware that many medications contain acetaminophen, do not exceed a total of 1000 mg of acetaminophen every 6 hours. If ibuprofen and acetaminophen are not sufficient for your pain you may take the Percocet/[place]. Please be aware that the Percocet/[place] does contain Tylenol. Stool softener of choice when on pain medication. USE OF [id number]-PZX-[id number] IBUPROFEN: Ibuprofen (Advil, Nuprin, Medipren, Motrin IB) is a medication for fever and pain control. In addition, it has anti- inflammatory effects which may be beneficial, especially in the treatment of injuries. It's best to take ibuprofen with food. Persons with ulcer disease or allergy to aspirin should notify their physician of this before taking ibuprofen. Ibuprofen can be given every four to six hours, for a total of four doses daily. Age Pain or fever dose Antiinflammatory dose 6-8 yr 200 mg (1 tab) 200 mg (1 tab) 9-11 yr 200 mg (1 tab) 200-400 mg (1-2 tab) 11-14 yr 200-400 mg (1-2 tab) 400 mg (2 tab) 15-adult 400 mg (2 tab) 600 mg (3 tab) ORAL NARCOTIC MEDICATION: You have been given a prescription for pain control. This medication is a narcotic. It's best taken with food, as nausea can result if taken on an empty stomach. Don't operate machinery or drive within six hours of taking this medication. Do not combine this medicine with alcohol, or with any medication which can cause sedation (such as cold tablets or sleeping pills) unless you get permission from the physician. Narcotics tend to cause constipation. If possible, drink plenty of fluids and eat a diet high in fiber and fruits. Please be aware that prescription narcotics also have the potential for abuse. People become addicted to these medications because of the general sense of wellbeing that they induce. This feeling along with a significant reduction in tension, anxiety, and aggression provides a stimulating seductive quality to these drugs. Once your pain is under control, we encourage you to discard your unused narcotics. Prescriptions: Ketorolac Tromethamine [Toradol 10 mg Tablet] 10 mg PO Q8HP PRN #12 tablet PRN Reason: Oxycodone HCl/Acetaminophen [Percocet 7.5-325 mg Tablet] 1 tab PO Q6 PRN #25 tab PRN Reason: Discharge Diet: As Tolerated Respiratory Treatments at Home: Deep Breathing/Coughing, Incentive Spirometer Discharge Activity: No Lifting Over 10 Pounds, No Lifting/Push/Pulling Report the Following to Your Physician Immediately: Fever over 101 Degrees, Unusual Bleeding, Redness, Swelling, Warmth, Increased Soreness, Drainage-Yellow
--- NOTE | 2020-03-27 12:52 | Operative Report ---
Operative Report DATE OF SURGERY: 03/27/20 PREOPERATIVE DIAGNOSIS: Right distal radius fracture POSTOPERATIVE DIAGNOSIS: Same OPERATION: ORIF right extra-articular distal radius fracture SURGEON: MIKHAIL DAVID ANESTHESIA: GA COMPLICATIONS: None ESTIMATED BLOOD LOSS: Minimal PROCEDURE: Indication for above procedure: 54-year-old female who sustained a fall onto her right wrist. Ultimately resulted in a fracture. Was being treated conservatively with a cast however most recent radiographs demonstrate increased shortening and angular deformity at that time decision was made to proceed with operative intervention. Risk and benefits were explained patient verbalized understanding consented for surgery procedure. Procedure In Detail: Patient was seen and evaluated in the preoperative holding area. [facility] upper extremity was initialized and marked. Patient received 2g of Ancef IV for bacterial prophylaxis. Patient was taken back to the operative room where transferred to the operative table and placed under general anesthesia. Once they were adequately anesthetized and a nonsterile tourniquet was placed on his upper extremity. A surgical team debriefing was performed ensuring all instrumentation was available, the surgical procedure was discussed with possible concerns reviewed. The upper extremity was prepped with chlorhexidine and alcohol and draped in a sterile fashion. A timeout was done identifying correct patient, procedure and extremity everyone in attendance agree with this and verbalized no concerns.The extremity was exsanguinated the tourniquet was inflated to 250 mmHg. A longitudinal skin incision was made via a volar approach of Roni along the FCR tendon sheath. The FCR tendon sheath was opened and the FCR retracted ulnarly, the palmar cutaneous branch of the median nerve was identified and protected throughout the entirety of the case. The radial artery was identified and retracted radially. Blunt dissection was performed to the FPL which was carefully sweeped ulnarly. This brought me to the pronator quadratus which was elevated off of the distal radius via sharp dissection with a 15 blade to allow later repair. The fracture was then identified and osteoclasis was performed to the fracture site. [place] elevator was placed within the fracture site and gentle traction performed in the fracture was reduced. Provisional fixation was obtained with a K wire. C-arm fluoroscopy was obtained confirming acceptable reduction was then obtained and a Acumed 3 hole volar distal radius plate was placed into position and fixated with a K wire distally x2. AP and lateral radiographs were then obtained demonstrating appropriate placement of the plate and acceptable reduction of the fracture. Using a reduction tenaculum I was able to bring the plate down to bone distally. After drilling distally a cortical screw was used bringing the plate further down to bone, avoiding any liftoff of the plate from the volar cortex that could cause flexor tendon irritation post-operativley. Drilling the near cortex and to but not thru the far cortex a locking screw was then placed in the remaining holes. The previous cortex screw was removed and replaced with a locking screw. Two additional screws were placed into the styloid giving further stability to the radial styloid piece. AP and lateral radius were then done confirming appropriate placement of plate with no evidence of penetration intra-articular or within the DRUJ. I then turned my attention to the proximal screws. I drilled bicortically bringing the plate down to bone with a cortex screw. The remaining 2 holes proximally were drilled bicortically placing the appropriate size cortex in the proximal most hole and a locking screw in the distal shaft hole. AP and lateral radiographs were done confirming appropriate placement of the plate and reduction of the fracture there was yazidism of radial height, radial inclination and volar tilt. No evidence of dorsal screw prominence or intra-articular penetration of the DRUJ or radiocarpal joint. The wound was copiously irrigated with normal saline. There was no evidence of DRUJ instability on examination, Negative Skaggs's test, No crepitus with range of motion at the radiocarpal joint or DRUJ. The pronator quadratus was closed with interrupted 3-0 Monocryl suture. Tourniquet was deflated any peripheral bleeding was controlled with cautery. Subcutaneous tissues were closed with interrupted 4-0 Monocryl suture. The skin was closed with a running subcuticular 4-0 Monocryl suture which was reinforced with Dermabond and Steri- Strips. Was dressed with sterile 4 x 4's and patient was placed in a well- padded volar splint. Sponge counts, instrument counts and needle counts were correct. There was no intraoperative complications patient tolerated procedure well stable to PACU. Postoperative plan: Patient will be switched to a removal brace at first postoperative followup visit and begin range of motion. Will obtain radiographs at followup of the wrist.
--- NOTE | 2020-03-27 15:14 | RADIOLOGY REPORT (SQ) ---
EXAM DESCRIPTION: NO CHG FLUORO; WRIST RIGHT 2 VIEWS IMAGES COMPLETED DATE/TIME: 03/27/2020 2:09 pm; 03/27/2020 2:10 pm REASON FOR STUDY: ORIF RIGHT WRIST ASSISTED WITH FLUORO IN OR S52.502D UNSP FX THE LOW END LEFT RAD , SUBS FOR CLOS FX W RO COMPARISON: None. FLUOROSCOPY TIME: 1 minutes and 11 seconds 4 images saved to PACS. TECHNIQUE: Intra-operative images acquired during surgical procedure to evaluate progress. NUMBER OF IMAGES: 4.0 LIMITATIONS: None. FINDINGS: Plate and screw fixation of comminuted distal radial fracture. IMPRESSION: IMAGE(S) OBTAINED DURING PROCEDURE. COMMENT: Quality ID [id number]: Final reports for procedures using fluoroscopy that document radiation exp osure indices, or exposure time and number of fluorographic images (if radiation exposure indices are not available) Please consult full operative report of the attending physician for description of the procedure. TECHNICAL DOCUMENTATION: JOB ID: [id number] 2010 [employer]- All Rights Reserved Reading location - IP/workstation name: [email or web address]
--- NOTE | 2020-03-27 15:14 | RADIOLOGY REPORT (SQ) ---
EXAM DESCRIPTION: NO CHG FLUORO; WRIST RIGHT 2 VIEWS IMAGES COMPLETED DATE/TIME: 03/27/2020 2:09 pm; 03/27/2020 2:10 pm REASON FOR STUDY: ORIF RIGHT WRIST ASSISTED WITH FLUORO IN OR S52.502D UNSP FX THE LOW END LEFT RAD , SUBS FOR CLOS FX W RO COMPARISON: None. FLUOROSCOPY TIME: 1 minutes and 11 seconds 4 images saved to PACS. TECHNIQUE: Intra-operative images acquired during surgical procedure to evaluate progress. NUMBER OF IMAGES: 4.0 LIMITATIONS: None. FINDINGS: Plate and screw fixation of comminuted distal radial fracture. IMPRESSION: IMAGE(S) OBTAINED DURING PROCEDURE. COMMENT: Quality ID [id number]: Final reports for procedures using fluoroscopy that document radiation exp osure indices, or exposure time and number of fluorographic images (if radiation exposure indices are not available) Please consult full operative report of the attending physician for description of the procedure. TECHNICAL DOCUMENTATION: JOB ID: [id number] 2010 [employer]- All Rights Reserved Reading location - IP/workstation name: [email or web address]
[2020-03-27 15:35] VITALS: BP 124/78
== END 2020-03-27 14:40 | disposition home or self-care (01) ==
LOC: OROUT 09:22
PROVIDERS: ATTEND Orthopaedic Surgery
DX: S52.551A Other extraarticular fracture of lower end of right radius, initial encounter for closed fracture (principal); W19.XXXA Unspecified fall, initial encounter; Z20.828 Contact with and (suspected) exposure to other viral communicable diseases; F17.210 Nicotine dependence, cigarettes, uncomplicated; M19.90 Unspecified osteoarthritis, unspecified site; Z79.1 Long term (current) use of non-steroidal anti-inflammatories (NSAID); Z79.891 Long term (current) use of opiate analgesic
CPT/HCPCS: 93005; 36415; 85027; 0241U ×4; 80048; 81001; 73100; 93010; 25607; J2250; J3490 ×2; J1100; J3010; J2405; J2704; J0690; J2795; C9803; 01830; 64415; 76942; C1713; C1769